=== PATIENT | female | born 1965 | race Caucasian/White ===

== ENCOUNTER 2018-07-01 18:51 | Emergency (ER) | payer OTHER ==
[2018-07-01 19:01] VITALS: BP 133/80
--- NOTE | 2018-07-01 19:35 | UC ---
Elbow Pain - HPI Summary HPI Summary: 52 yo female felt a pop in her left FA while lifting about 2 days ago she is right handed painful ROM has been icing and using NSAIDs - History of Current Complaint Chief Complaint: UCUpperExtremity Stated Complaint: ARM PAIN Time Seen by Provider: 07/01/18 19:05 Hx Obtained From: Patient Hx Last Menstrual Period: started september 15 Onset/Duration: Days Severity Initially: Moderate Severity Currently: Moderate Pain Intensity: 6 Pain Scale Used: 0-10 Numeric Location Of Pain: Is Diffuse Character: Aching, Spasmodic Aggravating Factor(s): Movement Alleviating Factor(s): Rest, Ice, OTC Meds Associated Signs And Symptoms: Positive: Negative Body - Head: 1 - acute pop here pain - Allergies/Home Medications Allergies/Adverse Reactions: Allergies Allergy/AdvReac Type Severity Reaction Status Date / Time No Known Allergies Allergy Verified 07/01/18 19:01 Home Medications: Home Medications Multivitamin [Multivitamins] 1 cap PO DAILY 07/01/18 [History Confirmed 07/01/18 ] PMH/Surg Hx/FS Hx/Imm Hx Previously Healthy: Yes - Surgical History Surgical History: Yes Surgery Procedure, Year, and Place: - Social History Alcohol Use: Weekly Alcohol Amount: wine Substance Use Type: None Smoking Status (MU): Never Smoked Tobacco Review of Systems All Other Systems Reviewed And Are Negative: Yes Constitutional: Positive: Negative Skin: Positive: Negative Eyes: Positive: Negative ENT: Positive: Negative Respiratory: Positive: Negative Cardiovascular: Positive: Negative Gastrointestinal: Positive: Negative Genitourinary: Positive: Negative Motor: Positive: Negative Neurovascular: Positive: Negative Musculoskeletal: Positive: Myalgia Neurological: Positive: Negative Psychological: Positive: Negative Physical Exam Triage Information Reviewed: Yes Appearance: Well-Appearing, No Pain Distress, Well-Nourished Vital Signs: Initial Vital Signs Temp 97 F 07/01/18 18:56 Pulse 62 07/01/18 18:56 Resp 14 07/01/18 18:56 BP 133/80 07/01/18 18:56 Pulse Ox 99 07/01/18 18:56 Vital Signs Reviewed: Yes Eyes: Positive: Conjunctiva Clear ENT: Positive: Hearing grossly normal. Negative: Nasal congestion, Nasal drainage, Trismus, Muffled voice, Hoarse voice Neck: Positive: Supple, Nontender, No Lymphadenopathy Respiratory: Positive: Lungs clear, Normal breath sounds, No respiratory distress, No accessory muscle use Cardiovascular: Positive: RRR, No Murmur Musculoskeletal: Positive: ROM Limited @ - right elbow Neurological: Positive: Alert Psychological Exam: Normal Skin Exam: Normal Diagnostics - Radiology No standard instances Radiology Interpretation Completed By: ED Physician Summary of Radiographic Findings: left elbow/no fx Elbow Pain Course/Dx - Differential Dx/Diagnosis Provider Diagnosis: Muscle tear, Elevated BP without diagnosis of hypertension Discharge - Sign-Out/Discharge Documenting (check all that apply): Patient Departure All imaging exams completed and their final reports reviewed: No - Discharge Plan Condition: Stable Disposition: HOME Prescriptions: Ibuprofen TAB* [Motrin TAB*] 600 mg PO TID PRN #30 tab PRN Reason: Pain Patient Education Materials: Muscle Strain (ED) Referrals: [facility] [Outside] - As Soon As Possible Additional Instructions: sling be ice motrin - Billing Disposition and Condition Condition: STABLE Disposition: Home
--- NOTE | 2018-07-02 11:26 | UC ---
- Progress Note Progress Note: RADIOLOGY REPORT REVIEWED. NO ACUTE OSSEOUS INJURY. NO CHANGE IN MGMT. Course/Dx - Diagnoses Provider Diagnoses: Muscle tear, Elevated BP without diagnosis of hypertension Discharge - Sign-Out/Discharge Documenting (check all that apply): Post-Discharge Follow Up All imaging exams completed and their final reports reviewed: Yes - Discharge Plan Condition: Stable Disposition: HOME Prescriptions: Ibuprofen TAB* [Motrin TAB*] 600 mg PO TID PRN #30 tab PRN Reason: Pain Patient Education Materials: Muscle Strain (ED) Referrals: [facility] – [facility] [Outside] - As Soon As Possible Additional Instructions: sling be ice motrin - Billing Disposition and Condition Condition: STABLE Disposition: Home
== END 2018-07-01 19:45 | disposition home or self-care (01) ==
LOC: UCEAST 18:51
DX: S56.911A Strain of unspecified muscles, fascia and tendons at forearm level, right arm, initial encounter (principal); X50.9XXA Other and unspecified overexertion or strenuous movements or postures, initial encounter; Y92.9 Unspecified place or not applicable; R03.0 Elevated blood-pressure reading, without diagnosis of hypertension
CPT/HCPCS: 99213; G0463